=== PATIENT | female | born 1940 | race Caucasian/White ===

== ENCOUNTER 2017-01-20 14:44 | Inpatient (IN) | payer OTHER ==
[~2017-01-20] VITALS: Ht 160 cm; Wt 57.2 kg
--- NOTE | ~2017-01-20 | EKG ---
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1940 Requested By: Melina Colorado Order Number: [id number] MD: Luis Miguel Goldberg Measurements Intervals [place] Rate: 84 P: 60 DC: 134 QRS: 11 QRSD: 98 T: 224 QT: 398 QTc: 471 Interpretive Statements Sinus rhythm LVH with secondary repolarization abnormality Compared to ECG 01/21/2017 05:59:12 ST and T wave abnormality is less pronounced Prolonged QT interval no longer present Electronically Signed On 01-25-2017 8:19:42 CDT by Luis Miguel Goldberg [email or web address] <ELECTRONICALLY SIGNED> By: Luis Miguel Goldberg MD, [facility] 01/25/17 0819 1225 1225 Luis Miguel Goldberg MD, [facility] /EPI
--- NOTE | ~2017-01-20 | S ---
[facility] [place] [address] SURGICAL PATH RPT PROCEDURE Name: JERILYN SANCHEZ KERON Room #: 204-P DIS IN M.R.#: [id number] Admission: 01/20/17 Date of : 42 Discharge: 01/25/17 Report #: [id number] Path Case #: [id number] PATHOLOGY REPORT COLLECTION DATE: 01/24/2017 RECEIVED DATE: 01/25/2017 SUBMITTING PHYS: Dr. Melina Colorado OTHER PHYS: Dr. Mukul Méndez SPECIMEN(S) RECEIVED: A.Bx of duodenum B.Bx of gastric * * * * * * * * * * * * FINAL DIAGNOSIS: A. Small bowel mucosa, "duodenum", endoscopic biopsy: - No diagnostic abnormalities. B. Gastric mucosa, "gastric", endoscopic biopsy: - Mild reactive gastropathy. - No evidence of intestinal metaplasia or atrophy. - No Helicobacter pylori identified. COMMENT: Helicobacter pylori immunohistochemical stain performed on block B1- negative. (IUV; 01/26/17) PATHOLOGIST: Matilde Coronado M.D. REPORT ELECTRONICALLY SIGNED BY: Matilde Coronado M.D. DATE/TIME: 01/26/2017 15:49 * * * * * * * * * * * * GROSS PATHOLOGY: A. Received in formalin labeled "Jerliyn Sanchez, biopsy of duodenum," is a segment of friend soft tissue measuring 0.5 cm in maximum dimension. The specimen is submitted entirely in cassette A1. B. Received in formalin labeled "Jerilyn Sanchez, biopsy of gastric," are 2 segments of friend soft tissue measuring 0.6 x 0.5 x 0.3 cm in aggregate dimensions and ranging from 0.2 to 0.5 cm in maximum dimension. The specimen is submitted entirely in cassette B1. (KAH; 01/25/2017) CLINICAL HISTORY: Gastritis, rule out celiac [facility] [address] [place] [address] SURGICAL PATH RPT PROCEDURE Name: JERILYN SANCHEZ KERON Room #: 204-P [facility] IN M.R.#: [id number] Admission: 01/20/17 Date of : 42 Discharge: 01/25/17 Report #: [id number] Path Case #: [id number] INITIAL CPT CODE(S): A; 56222 B; 57644, 76438 Professional services performed by [facility] at [address] , [place] [address] Technical services performed by [facility] at [address] [place] [address], [address], [place] [address]. [facility] [address] [address] PHONE: [phone] DIRECTOR: Josh Bryan M.D. * * * END OF REPORT * * *
--- NOTE | ~2017-01-20 | EKG ---
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1940 Requested By: Shyann Bee Order Number: [id number] MD: Luis Miguel Goldberg Measurements Intervals [place] Rate: 99 P: 67 CO: 130 QRS: 17 QRSD: 96 T: 237 QT: 422 QTc: 542 Interpretive Statements Sinus tachycardia ST and T wave abnormality, consider ischemia Prolonged QT interval Compared to ECG 04/26/2016 14:07:29 ST and T wave abnormality is now present QT interval has lengthened Electronically Signed On 01-22-2017 8:40:00 CDT by Luis Miguel Goldberg [email or web address] <ELECTRONICALLY SIGNED> By: Luis Miguel Goldberg MD, [facility] 01/22/17 0840 0559 0559 Luis Miguel Goldberg MD, [facility] /EPI
[~2017-01-20 14:44] MED LIST: ASPIR 8181 MG PO; DIOVAN40 MG PO; FERREX 150 PLU1 EAC1 PO; HYDROCHLOROTHIA25 M1 PO; KLOR-CON 10 ER10 MEQ PO; LIBRAX CAPSULE1 EACH PO; MAGNESIUM OXID400 MG PO; NORCO 5-325 TA1 EACH PO; NORVASC10 MG PO; PREMARIN0.625 MG PO; PREMPRO 0.625-1 EAC1 PO; PROAIR HFA8.5 GM INH; PROZAC40 MG PO; ULTRAM 50MG TAB50 MG PO; VITAMIN D32000 UNI1 PO; VITAMIN E1000 UNI3 PO; ZIAC; ZIAC 5-6.25 MG1 EACH PO
[2017-01-20 18:35] VITALS: BP 149/85
[2017-01-20] MEDS ORDERED: XANAX 0.25 MG0.25 MG PO (18:59)
[2017-01-20 23:39] VITALS: BP 146/78
[2017-01-21 03:43] VITALS: BP 133/74
[2017-01-21 03:54] LABS: HEMATOCRIT 30.8 % (37.0-47.0); HEMOGLOBIN 9.9 gm/dL (12.0-15.0); MCH 25.4 pg (26.0-34.0); MCHC 32.2 g/dL (28.0-37.0); MCV 78.8 fL (80.0-100.0); RBC 3.91 mil/uL (4.20-5.00); RDW 17.8 % (10.5-14.5); WBC 6.4 thou/uL (4.0-11.0)
[2017-01-21 04:09] LABS: ANION GAP 10 mmol/L (7-16); BUN 16 mg/dL (7-18); CHLORIDE 104 mmol/L (98-107); CHOLESTEROL 166 mg/dL (<200); CO2 23 mmol/L (21-32); CREATININE 0.8 mg/dL (0.6-1.0); GLUCOSE 87 mg/dL (74-106); HDL CHOLESTEROL 93 mg/dL (>40); LDL CHOLESTEROL 64 mg/dL (<100); POTASSIUM 3.4 mmol/L (3.5-5.1); SODIUM 137 mmol/L (136-145); TC:HDL 1.8 Ratio (Not establshd); TRIGLYCERIDE 48 mg/dL (<150); VLDL 10 mg/dL (<40)
[2017-01-21 07:45] VITALS: BP 118/60
[2017-01-21 11:35] VITALS: BP 102/52
[2017-01-21 16:10] VITALS: BP 94/47
[2017-01-21 20:22] VITALS: BP 94/50
[2017-01-22 02:45] LABS: CALCIUM 8.1 mg/dL (8.5-10.1); CREATININE 0.9 mg/dL (0.6-1.0)
[2017-01-22 03:06] LABS: POTASSIUM 5.4 mmol/L (3.5-5.1)
[2017-01-22 04:30] VITALS: BP 110/57
[2017-01-22 07:30] VITALS: BP 144/72
[2017-01-22 11:45] VITALS: BP 118/60
[2017-01-22 15:20] VITALS: BP 119/62
[2017-01-22 19:27] VITALS: BP 106/48
[2017-01-23 02:43] VITALS: BP 136/72
[2017-01-23 03:00] LABS: ABSOLUTE NEUTROPHILS 4.2 thou/uL (1.4-8.2); BASOPHILS 0.3 % (0.0-2.0); EOSINOPHILS 2.4 % (0.0-3.0); HEMOGLOBIN 9.7 gm/dL (12.0-15.0); LYMPHOCYTES 26.3 % (24.0-44.0); MCH 25.3 pg (26.0-34.0); MCHC 31.4 g/dL (28.0-37.0); MCV 80.6 fL (80.0-100.0); MONOCYTES 8.7 % (1.0-8.0); PLATELET COUNT 106 thou/uL (150-400); POLYS 62.3 % (36.0-66.0); RBC 3.84 mil/uL (4.20-5.00); RDW 18.3 % (10.5-14.5); WBC 6.8 thou/uL (4.0-11.0)
[2017-01-23 03:02] LABS: MANUAL DIFF NO
[2017-01-23 03:07] LABS: CALCIUM 8.2 mg/dL (8.5-10.1); CREATININE 0.9 mg/dL (0.6-1.0); MAGNESIUM 1.6 mg/dL (1.8-2.4); POTASSIUM 4.3 mmol/L (3.5-5.1)
[2017-01-23 07:30] VITALS: BP 145/75
[2017-01-23 11:30] VITALS: BP 113/59
[2017-01-23 15:30] VITALS: BP 109/55
[2017-01-23 19:36] VITALS: BP 120/64
[2017-01-24 03:37] LABS: CALCIUM 8.4 mg/dL (8.5-10.1); CREATININE 0.8 mg/dL (0.6-1.0)
[2017-01-24 04:00] VITALS: BP 140/79
[2017-01-24 04:00] LABS: HEMATOCRIT 30.9 % (37.0-47.0); HEMOGLOBIN 9.9 gm/dL (12.0-15.0); MCH 25.6 pg (26.0-34.0); RBC 3.86 mil/uL (4.20-5.00); RDW 18.2 % (10.5-14.5); WBC 5.6 thou/uL (4.0-11.0)
[2017-01-24 07:55] VITALS: BP 144/80
[2017-01-24] MEDS ORDERED: HYDROCODON-ACE1 EAC7 PO (09:32)
[2017-01-24] MEDS ORDERED: PANTOPRAZOLE SO40 M1 PO (09:32)
[2017-01-24] MEDS ORDERED: BENTYL 10 MG CA10 M1 PO (09:32)
[2017-01-24 19:35] VITALS: BP 131/71
[2017-01-25 04:23] VITALS: BP 129/63
[2017-01-25 08:00] VITALS: BP 142/71
[2017-01-25 11:10] VITALS: BP 142/71
== END 2017-01-25 12:30 | disposition home or self-care (01) | DRG 392 ==
LOC: 3N 14:44 → 2N 16:30
PROVIDERS: Internal Medicine; Internal Medicine Endocrinology, Diabetes & Metabolism; Nurse Practitioner Adult Health; Nurse Practitioner Family
PROC: 0DB98ZX Excision of Duodenum, Via Natural or Artificial Opening Endoscopic, Diagnostic (ICD-10-PCS; principal; 2017-01-24)
PROC: 0DB68ZX Excision of Stomach, Via Natural or Artificial Opening Endoscopic, Diagnostic (ICD-10-PCS; principal; 2017-01-24)
DX: K29.70 Gastritis, unspecified, without bleeding (principal); I71.4 Abdominal aortic aneurysm, without rupture; R41.82 Altered mental status, unspecified; I10 Essential (primary) hypertension; F41.9 Anxiety disorder, unspecified; G43.909 Migraine, unspecified, not intractable, without status migrainosus; G89.29 Other chronic pain; M54.9 Dorsalgia, unspecified; J44.9 Chronic obstructive pulmonary disease, unspecified; I25.10 Atherosclerotic heart disease of native coronary artery without angina pectoris; E78.5 Hyperlipidemia, unspecified; I73.9 Peripheral vascular disease, unspecified; R63.4 Abnormal weight loss; Z68.22 Body mass index [BMI] 22.0-22.9, adult; K58.9 Irritable bowel syndrome, unspecified; E83.42 Hypomagnesemia; D50.9 Iron deficiency anemia, unspecified; I95.1 Orthostatic hypotension; F32.9 Major depressive disorder, single episode, unspecified; Z88.6 Allergy status to analgesic agent; Z90.710 Acquired absence of both cervix and uterus; Z88.1 Allergy status to other antibiotic agents; Z90.49 Acquired absence of other specified parts of digestive tract; Z87.891 Personal history of nicotine dependence; Z89.421 Acquired absence of other right toe(s); Z87.11 Personal history of peptic ulcer disease; Z98.42 Cataract extraction status, left eye; Z98.41 Cataract extraction status, right eye; Z98.62 Peripheral vascular angioplasty status; Z79.82 Long term (current) use of aspirin; Z79.899 Other long term (current) drug therapy; Z82.49 Family history of ischemic heart disease and other diseases of the circulatory system
CPT/HCPCS: 10081; 62110; 62900; 70005

== ENCOUNTER → 2020-01-13 | Outpatient (CLI) | payer OTHER ==
[~2020-01-13] MED LIST changes: +BENTYL 10 MG CA10 M1 PO; +HYDROCODON-ACE1 EAC7 PO; +PANTOPRAZOLE SO40 M1 PO; +XANAX 0.25 MG0.25 MG PO
== END ==
LOC: SJCVCIMAG 08:11
PROVIDERS: ATTEND Nuclear Medicine Nuclear Cardiology
DX: I08.8 Other rheumatic multiple valve diseases (principal); I11.9 Hypertensive heart disease without heart failure; I71.4 Abdominal aortic aneurysm, without rupture; I70.203 Unspecified atherosclerosis of native arteries of extremities, bilateral legs; I42.9 Cardiomyopathy, unspecified; I25.10 Atherosclerotic heart disease of native coronary artery without angina pectoris; E78.00 Pure hypercholesterolemia, unspecified; J44.9 Chronic obstructive pulmonary disease, unspecified; Z79.899 Other long term (current) drug therapy; Z82.49 Family history of ischemic heart disease and other diseases of the circulatory system; Z87.891 Personal history of nicotine dependence; Z95.820 Peripheral vascular angioplasty status with implants and grafts

== ENCOUNTER → 2020-02-27 | Outpatient (CLI) | payer OTHER | LOC: SJCVC 11:01 | PROVIDERS: ATTEND Internal Medicine Cardiovascular Disease | DX: I11.9 Hypertensive heart disease without heart failure (principal); R94.31 Abnormal electrocardiogram [ECG] [EKG]; I25.10 Atherosclerotic heart disease of native coronary artery without angina pectoris; I71.4 Abdominal aortic aneurysm, without rupture; I73.9 Peripheral vascular disease, unspecified; I42.5 Other restrictive cardiomyopathy; I08.1 Rheumatic disorders of both mitral and tricuspid valves; E78.00 Pure hypercholesterolemia, unspecified; K21.9 Gastro-esophageal reflux disease without esophagitis; J44.9 Chronic obstructive pulmonary disease, unspecified; G89.4 Chronic pain syndrome; Z79.899 Other long term (current) drug therapy; Z82.49 Family history of ischemic heart disease and other diseases of the circulatory system; Z87.891 Personal history of nicotine dependence ==

== ENCOUNTER → 2020-03-04 | Outpatient (CLI) | payer OTHER | LOC: SJCVCIMAG 10:47 | PROVIDERS: ATTEND Internal Medicine Cardiovascular Disease | DX: R00.0 Tachycardia, unspecified (principal); I25.2 Old myocardial infarction; I11.0 Hypertensive heart disease with heart failure; I50.9 Heart failure, unspecified; J44.9 Chronic obstructive pulmonary disease, unspecified; I25.10 Atherosclerotic heart disease of native coronary artery without angina pectoris; I42.5 Other restrictive cardiomyopathy; E78.5 Hyperlipidemia, unspecified; Z87.891 Personal history of nicotine dependence; Z79.899 Other long term (current) drug therapy ==

== ENCOUNTER → 2020-03-10 | Outpatient (CLI) | payer OTHER | LOC: SJCVCIMAG 07:38 | PROVIDERS: ATTEND Internal Medicine Cardiovascular Disease | DX: I65.23 Occlusion and stenosis of bilateral carotid arteries (principal) ==

== ENCOUNTER → 2020-03-10 | Outpatient (CLI) | payer OTHER ==
[2020-03-10 09:57] LABS: CREATININE 0.9 mg/dL (0.6-1.0)
== END ==
LOC: CAT 08:36
PROVIDERS: Family Medicine; ATTEND Nuclear Medicine Nuclear Cardiology
DX: I71.4 Abdominal aortic aneurysm, without rupture (principal); I25.10 Atherosclerotic heart disease of native coronary artery without angina pectoris

== ENCOUNTER → 2020-09-24 | Outpatient (CLI) | payer OTHER | LOC: SJCVC 10:51 | PROVIDERS: ATTEND Internal Medicine Cardiovascular Disease | DX: R94.31 Abnormal electrocardiogram [ECG] [EKG] (principal); I25.10 Atherosclerotic heart disease of native coronary artery without angina pectoris; I10 Essential (primary) hypertension; E78.00 Pure hypercholesterolemia, unspecified; I73.9 Peripheral vascular disease, unspecified; I36.1 Nonrheumatic tricuspid (valve) insufficiency; I34.0 Nonrheumatic mitral (valve) insufficiency; I71.4 Abdominal aortic aneurysm, without rupture; I77.9 Disorder of arteries and arterioles, unspecified; I42.9 Cardiomyopathy, unspecified; J44.9 Chronic obstructive pulmonary disease, unspecified; K21.9 Gastro-esophageal reflux disease without esophagitis; Z88.5 Allergy status to narcotic agent; Z79.899 Other long term (current) drug therapy; Z87.891 Personal history of nicotine dependence ==

== ENCOUNTER 2021-04-15 10:44 | Inpatient (IN) | payer OTHER ==
[~2021-04-15] VITALS: Ht 160 cm; Wt 58.1 kg
[~2021-04-15 10:44] MED LIST changes: -BISOPROLOL FUMAR5 MG PO; -CYANOCOBAL1000 MCG/1 IM; -FISH OIL 1,0001 EAC9 PO; -FOLIC ACID1 MG PO; -PROTONIX 20 MG20 M1 PO; -VALSARTAN80 MG PO; -VAZALORE81 MG PO
[2021-04-15 10:45] VITALS: BP 163/74
[2021-04-15 11:00] LABS: ABSOLUTE NEUTROPHILS 3.5 thou/uL (1.4-8.2); BASOPHILS 0.4 % (0.0-2.0)
[2021-04-15 11:02] LABS: EOSINOPHILS 0.7 % (0.0-3.0); LYMPHOCYTES 25.2 % (24.0-44.0); MCHC 31.2 g/dL (28.0-37.0); MCV 83.5 fL (80.0-100.0); PLATELET COUNT 176 thou/uL (150-400); POLYS 64.7 % (36.0-66.0); RBC 2.35 mil/uL (4.20-5.00); WBC 5.3 thou/uL (4.0-11.0)
[2021-04-15 11:26] LABS: HEMOGLOBIN 6.1 gm/dL (12.0-15.0)
[2021-04-15 11:27] LABS: HEMATOCRIT 19.6 % (37.0-47.0)
[2021-04-15 11:29] LABS: ANION GAP 7 mmol/L (7-16); BUN 28 mg/dL (7-18); CALCIUM 8.8 mg/dL (8.5-10.1); CHLORIDE 104 mmol/L (98-107); CO2 27 mmol/L (21-32); CREATININE 1.1 mg/dL (0.6-1.0); GLUCOSE 93 mg/dL (74-106); POTASSIUM 4.1 mmol/L (3.5-5.1); SODIUM 138 mmol/L (136-145)
[2021-04-15 11:40] LABS: ALBUMIN 2.8 g/dL (3.4-5.0); DIRECT BILIRUBIN < 0.1 mg/dL (<0.1-0.2); LIPASE 145 U/L (73-393); SGOT 19 U/L (15-37); SGPT 17 U/L (14-59); TOTAL BILIRUBIN 0.3 mg/dL (0.2-1.0); TOTAL PROTEIN 6.3 g/dL (6.4-8.2)
[2021-04-15 13:55] VITALS: BP 136/67
--- NOTE | 2021-04-15 14:53 | 2DMMODE ---
[facility] [place] [address] 2 D/M-MODE ECHOCARDIOGRAM Name: AVNI QUIROZ Room #: 170-6 ADM IN M.R.#: [id number] Admission: 04/15/21 Attend Phys: David Goode MD Discharge: Date of : 42 Report #: [id number] THIS REPORT FOR: cc: Akbar Berry MD, Rene P. MD Santiago, Patrick MD [facility] ~ APPROVED REPORT Study performed: 04/15/2021 13:18:54 EXAM: Comprehensive 2D, Doppler, and color-flow Echocardiogram Patient Location: ER Status: routine BSA: 1.59 HR: 85 bpm BP: 114/69 mmHg Rhythm: NSR Other Information Study Quality: Adequate Indications Chest Pain Hx: CAD, cardiomyopathy, CHF, COPD, PVD. 2D Dimensions IVSd: 10.85 (7-11mm) LVOT Diam: 18.91 (18-24mm) LVDd: 42.94 mm PWd: 11.21 (7-11mm) LVDs: 33.05 (25-40mm) Left Atrium: 29.81 (27-40mm) Aortic Root: 36.82 mm Volumes Left Atrial Volume (Systole) Single Plane 4CH: 39.31 mL Single Plane 2CH: 45.69 mL LA ESV Index: 30.00 mL/m2 Aortic Valve AoV Peak Corwin.: 1.47 m/s AO Peak Gr.: 8.63 mmHg LVOT Max P.69 mmHg LVOT Max V: 1.08 m/s MARCIE Vmax: 2.07 cm2 [facility] [address] [place] [address] 2 D/M-MODE ECHOCARDIOGRAM Name: AVNI QUIROZ Room #: 170-6 [facility] IN [facility]#: [id number] Admission: 04/15/21 Attend Phys: David Goode MD Discharge: Date of : 42 Report #: [id number] Vmax: 4.19 m/s AI [place]: 3.41 m/s2 AI PHT: 356.69 ms Mitral Valve E/A Ratio: 0.6 MV Decel. Time: 124.86 ms MV E Max Corwin.: 0.63 m/s MV A Corwin.: 0.98 m/s MV PHT: 36.21 ms IVRT: 100.35 ms Pulmonary Valve PV Peak Corwin.: 1.14 m/s PV Peak Gr.: 5.19 mmHg Tricuspid Valve TR Peak Corwin.: 2.67 m/s RAP Estimate: 10.00 mmHg TR Peak Gr.: 29.00 mmHg PA Pressure: 39.00 mmHg Left Ventricle The left ventricle is normal size. There is normal left ventricular wall thickness. Left ventricular systolic function is normal. LVEF is 55%. Mild diastolic dysfunction is present (impaired relaxation pattern). Right Ventricle The right ventricle is normal size. The right ventricular systolic function is normal. Atria The left atrium size is normal. The right atrium size is normal. Aortic Valve The Aortic valve is mildly sclerotic. Moderate aortic regurgitation. There is no aortic valvular stenosis. Mitral Valve Mitral valve leaflets are mildly thickened. Mild mitral annular calcification. Mild mitral regurgitation. No evidence of mitral valve stenosis. Tricuspid Valve The tricuspid valve is normal in structure. Mild tricuspid regurgitation. Estimated PAP is 39mmHg. [facility] [address] [place] [address] 2 D/M-MODE ECHOCARDIOGRAM Name: AVNI QUIROZ KERON Room #: 170-6 ADM IN M.R.#: [id number] Admission: 04/15/21 Attend Phys: David Goode MD Discharge: Date of : 42 Report #: [id number] Pulmonic Valve The pulmonary valve is normal in structure. There is no pulmonic valvular regurgitation. Great Vessels The aortic root is normal in size. Ascending aorta is not well visualized. IVC is dilated and collapses <50% with inspiration. Pericardium There is no pericardial effusion. <Conclusion> Normal left ventricular size/wall thickness Ejection fraction 55% Grade 1 diastolic dysfunction Normal right ventricular size/function Normal atrial size Color-flow Doppler study was performed of the aortic/mitral/tricuspid/pulmonary valve Aortic valve mildly sclerotic without stenosis Moderate aortic valve insufficiency Mild posterior directed mitral valve insufficiency Mild tricuspid valve insufficiency Pulmonary systolic pressure estimated 39 mmHg No pericardial effusion Normal aortic root size. <ELECTRONICALLY SIGNED> By: Barak Becerril MD, FACC 04/15/211452 52 52 Barak Becerril MD, FACC /INF
--- NOTE | 2021-04-15 14:54 | EKG ---
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1940 Requested By: Tigre Ramirez Order Number: [id number] MD: Barak Becerril Measurements Intervals [place] Rate: 95 P: 66 MI: 161 QRS: 30 QRSD: 111 T: 75 QT: 357 QTc: 449 Interpretive Statements Sinus rhythm Probable left atrial enlargement Minimal ST depression, lateral leads Compared to ECG 04/15/2021 10:37:11 ST (T wave) deviation now present Sinus tachycardia no longer present Early repolarization no longer present Possible ischemia no longer present Electronically Signed On 04-15-2021 14:54:43 CDT by Barak Becerril [email or web address] <ELECTRONICALLY SIGNED> By: Barak Becerril MD, FAC 04/15/21 1454 1104 1104 Barak Becerril MD, [facility] /EPI
--- NOTE | 2021-04-15 14:54 | EKG ---
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1940 Requested By: Tigre Ramirez Order Number: [id number] MD: Barak Becerril Measurements Intervals [place] Rate: 103 P: 81 RI: 152 QRS: 26 QRSD: 94 T: 68 QT: 333 QTc: 436 Interpretive Statements Sinus tachycardia Multiple premature complexes, vent & supraven Consider left ventricular hypertrophy Repol abnrm suggests ischemia, lateral leads Compared to ECG 01/24/2017 12:25:44 Possible ischemia now present Sinus rhythm no longer present Electronically Signed On 04-15-2021 14:54:41 CDT by Barak Becerril [email or web address] <ELECTRONICALLY SIGNED> By: Barak Becerril MD, FACC 04/15/21 1454 1037 1037 Barak Becerril MD, FAC /EPI
[2021-04-15 16:29] LABS: FOLIC ACID 15.3 ng/mL (8.6-58.9)
[2021-04-15 18:05] VITALS: BP 149/71
[2021-04-15 19:40] VITALS: BP 143/72
--- NOTE | 2021-04-15 20:00 | NUR ---
PT AN ADMIT FROM EMERGECNCY ROOM FOR ANEMAI. AND 1 PRBC GIVEN IN THE ER FOR LOW HEOGLOBIN. PLACED ON TELE MONITOR SINUS RHYTHM. LUNGS ARE CLEAR ON ROOM AIR. ABDOMEN IS SOFT BOWEL SOUNDS ACTIVE X4. ANOTHER IV STARTED AND PLACED ON PT FOR BLOOD PRODUCTS TO BE GIVEN PT NEEDS ANOTHER UNIT OF BLOOD AFTER ARIVAL TO UNIT ON CCU. CALL LIGHT WITHIN REACH AND PLAN OF CARE DISCUSSED WITH PT
[2021-04-15 22:15] VITALS: BP 126/56; BP 153/80; BP 172/74
[2021-04-16 02:32] VITALS: BP 126/58
[2021-04-16 04:34] VITALS: BP 144/52
[2021-04-16 05:46] LABS: CALCIUM 8.7 mg/dL (8.5-10.1); POTASSIUM 3.8 mmol/L (3.5-5.1)
[2021-04-16 05:47] LABS: MAGNESIUM 1.9 mg/dL (1.8-2.4)
[2021-04-16 05:51] LABS: ABSOLUTE NEUTROPHILS 2.8 thou/uL (1.4-8.2); BASOPHILS 0.6 % (0.0-2.0); EOSINOPHILS 1.6 % (0.0-3.0); HEMATOCRIT 27.9 % (37.0-47.0); LYMPHOCYTES 25.1 % (24.0-44.0); MCH 27.3 pg (26.0-34.0); MCHC 31.9 g/dL (28.0-37.0); MCV 85.6 fL (80.0-100.0); MONOCYTES 10.2 % (1.0-8.0); PLATELET COUNT 149 thou/uL (150-400); POLYS 62.5 % (36.0-66.0); RBC 3.26 mil/uL (4.20-5.00); RDW 16.8 % (10.5-14.5); WBC 4.4 thou/uL (4.0-11.0)
[2021-04-16 05:53] LABS: HEMOGLOBIN 8.9 gm/dL (12.0-15.0)
[2021-04-16 07:30] VITALS: BP 144/68
[2021-04-16 10:44] VITALS: BP 128/62
[2021-04-16 13:53] LABS: HEMATOCRIT 26.3 % (37.0-47.0); HEMOGLOBIN 8.3 gm/dL (12.0-15.0); MCH 27.1 pg (26.0-34.0); MCHC 31.6 g/dL (28.0-37.0); MCV 85.7 fL (80.0-100.0); RBC 3.07 mil/uL (4.20-5.00); RDW 16.1 % (10.5-14.5)
[2021-04-16 15:49] VITALS: BP 143/64
[2021-04-16 20:38] VITALS: BP 138/66
[2021-04-17 04:16] LABS: ABSOLUTE NEUTROPHILS 2.3 thou/uL (1.4-8.2); BASOPHILS 0.5 % (0.0-2.0); EOSINOPHILS 1.5 % (0.0-3.0); HEMATOCRIT 26.9 % (37.0-47.0); HEMOGLOBIN 8.6 gm/dL (12.0-15.0); LYMPHOCYTES 24.5 % (24.0-44.0); MCH 27.1 pg (26.0-34.0); MCHC 32.1 g/dL (28.0-37.0); MCV 84.3 fL (80.0-100.0); MONOCYTES 10.2 % (1.0-8.0); PLATELET COUNT 148 thou/uL (150-400); POLYS 63.3 % (36.0-66.0); RBC 3.18 mil/uL (4.20-5.00); RDW 16.3 % (10.5-14.5); WBC 3.6 thou/uL (4.0-11.0)
[2021-04-17 04:33] VITALS: BP 149/86
[2021-04-17 04:38] LABS: ALBUMIN 2.9 g/dL (3.4-5.0); CALCIUM 8.5 mg/dL (8.5-10.1); MAGNESIUM 1.7 mg/dL (1.8-2.4); PHOSPHORUS 3.7 mg/dL (2.5-4.9); POTASSIUM 3.5 mmol/L (3.5-5.1); TOTAL BILIRUBIN 0.6 mg/dL (0.2-1.0); TOTAL PROTEIN 5.6 g/dL (6.4-8.2)
--- NOTE | 2021-04-17 06:00 | NUR ---
A VERY DELIGHTFUL LITTLE LADY. STATED IT FELT SO GOOD TO SLEEP TONIGHT. TODAY PT TO HAVE PREP FOR COLONOSCOPY IN AM. PROGRESSING TOWARTD GOALS
[2021-04-17 07:07] VITALS: BP 143/65
[2021-04-17 12:10] VITALS: BP 147/75
[2021-04-17 16:12] VITALS: BP 145/71
[2021-04-17 19:56] VITALS: BP 146/72
--- NOTE | 2021-04-18 03:24 | NUR ---
NPO SINCE MIDNIGHT FOR A POSSIBLE COLONOSCOPY TODAY.BM'S THIS SHIFT.PT A LITTLE ANXIOUS;XANAX GIVEN.PT SLEEPING.MONITOR SHOWS SR.POC CONTINUED.
[2021-04-18 04:25] VITALS: BP 145/68
[2021-04-18 07:03] LABS: ABSOLUTE NEUTROPHILS 2.6 thou/uL (1.4-8.2); BASOPHILS 0.4 % (0.0-2.0); EOSINOPHILS 1.5 % (0.0-3.0); HEMATOCRIT 29.6 % (37.0-47.0); HEMOGLOBIN 9.3 gm/dL (12.0-15.0); LYMPHOCYTES 16.4 % (24.0-44.0); MCH 26.6 pg (26.0-34.0); MCHC 31.5 g/dL (28.0-37.0); MCV 84.2 fL (80.0-100.0); MONOCYTES 9.5 % (1.0-8.0); PLATELET COUNT 140 thou/uL (150-400); POLYS 72.2 % (36.0-66.0); RBC 3.51 mil/uL (4.20-5.00); RDW 16.3 % (10.5-14.5); WBC 3.6 thou/uL (4.0-11.0)
[2021-04-18 07:23] LABS: CALCIUM 8.9 mg/dL (8.5-10.1); MAGNESIUM 1.6 mg/dL (1.8-2.4); PHOSPHORUS 3.5 mg/dL (2.5-4.9); POTASSIUM 3.5 mmol/L (3.5-5.1)
--- NOTE | 2021-04-18 07:29 | EKG ---
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1940 Requested By: Racheal Bush Order Number: [id number] MD: Barak Becerril Measurements Intervals [place] Rate: 77 P: 62 CO: 147 QRS: 10 QRSD: 107 T: 53 QT: 385 QTc: 436 Interpretive Statements Sinus rhythm Ventricular premature complex Probable left atrial enlargement Low voltage, precordial leads Baseline wander in lead(s) V6 Compared to ECG 04/15/2021 11:04:36 Ventricular premature complex(es) now present Low QRS voltage now present ST (T wave) deviation no longer present Electronically Signed On 04-18-2021 7:28:47 CDT by Barak Becerril [email or web address] <ELECTRONICALLY SIGNED> By: Barak Becerril MD, FAC 04/18/21727 7 7 Barak Becerril MD, [facility] /EPI
[2021-04-18 07:30] VITALS: BP 161/74
[2021-04-18 11:10] VITALS: BP 151/67
[2021-04-18] MEDS ORDERED: BISOPROLOL FUMAR5 MG PO (12:51)
[2021-04-18] MEDS ORDERED: FOLIC ACID1 MG PO (12:51)
[2021-04-18] MEDS ORDERED: PROTONIX 20 MG20 M1 PO (12:51)
[2021-04-18] MEDS ORDERED: CYANOCOBAL1000 MCG/1 IM (12:51)
[2021-04-18 15:11] VITALS: BP 123/59
--- NOTE | 2021-04-18 19:00 | NUR ---
PT WAS SCHEDULED TO HAVE A COLONOSCOPY TODAY, PT RECEIVED A ENEMA, AND WAS FOUND TO STILL BE HAVING SOLID STOOLS. THE COLONOSCOPY HAS BEEN PUSHED TILL TOMORROW. PT IS CURRENTLY DOING A BOWEL PREP.
[2021-04-18 19:20] VITALS: BP 144/73
--- NOTE | 2021-04-19 03:28 | NUR ---
PT CARE ASSUMED WITH PT FINISHING UP BOWEL PREP AT 1900.PT IS A/O X4 .PT IS UP AD LAURA AND STEADY GAIT AND EDUCATED TO CALL FOR HELP .PT IS ON ROOM AIR.PT NPO FROM MIDNIGHT AND PT AWARE OF POC.PT DENIED PAIN,NAUSEA AND VOMITIONG.WILL CONTINUE TO MONITOR PER POC
[2021-04-19 04:04] VITALS: BP 163/75
[2021-04-19 07:00] VITALS: BP 129/90
--- NOTE | 2021-04-19 11:29 | NUR ---
INITIAL ASSESSMENT: SW reviewed chart and spoke with nursing and attending physician. Pt was admitted from home due to chest pain/abdominal pain. Pt to have a colonoscopy today, and then may discharge home following procedure. SW met with pt at bedside. Introduced role of SW. Pt is alert/orientated x 4. Pt reports she lives at home. Prior to admission, pt was independent with ADLs. No use of DME for ambulation. No hx of services or post-acute placement. Pt's PCP is Dr. Akbar Berry. Pt's heel attacher wood is Dr. Bonilla. Pt is aware and in agreement with discharge plan. Pt's dtr will provide transportation home. Pt is up ad moshe in her room. No discharge needs identified at this time. SW is available to assist should needs arise.
[2021-04-19 13:46] VITALS: BP 129/90
--- NOTE | 2021-04-19 14:14 | NUR ---
PT HAD COLONOSCOPY COMPLETED TODAY, RECOVERED IN PACU. PT BACK TO CCU AND IS APPROPRIATE AND SAFE. PT HAS BEEN CLEARED BY GI/CARDIOLOGY/HOSPITALIST TO DC HOME. PT AFEBRILE, ADEQUATE UOP, NO BM, POOR APPETITE. PT TO DO DC HOME WITH DAUGHTER. PT HAS BEEN THOURUGHLY UPDATED AND EDUCATED ON PT CONDITION AND POC. PT PROGRESSING TOWARDS POC.
--- NOTE | 2021-04-20 16:10 | P ---
[facility] [place] [address] PROCEDURE REPORT Name: AVNI QUIROZ Room #: 211-P [facility] IN M.R.#: [id number] Admission: 04/15/21 Attend Phys: David Goode MD Discharge: 04/19/21 Date of : 42 Report #: [id number] THIS REPORT FOR: cc: Akbar Berry MD, Rene P. MD Mc[place]hinney, Christian C. MD ~ cc: Akbar Berry MD DATE OF SERVICE: 04/19/2021 PROCEDURE PERFORMED: Colonoscopy with polypectomies. HISTORY OF PRESENT ILLNESS: The patient is an 81-year-old female who was admitted with increasing shortness of breath, dizziness, melanotic type stools. CT scan of the abdomen and pelvis showed no evidence of signs of bleeding. Hemoglobin on admission was noted to be 6.1. She underwent 2 units of packed cells. She has been having acid reflux symptoms. She underwent an upper endoscopy, by Dr. Plunkett, which was normal. She was Hemoccult positive. Her hemoglobin now after transfusion has been stable at 9.3. Plan is for colonoscopy. DESCRIPTION OF PROCEDURE: The risks and benefits of the procedure were explained to the patient, those risks including but not limited to bleeding, perforation and the risk of sedation. She understood these risks and gave informed consent. Sedation was given using propofol per Anesthesia. Next, a digital rectal exam was initially performed, which was normal. Next, using a pediatric Olympus colonoscope, the scope was placed in the patient's anus and advanced under direct vision to the cecum. The overall prep was excellent. Two polyps were noted in the cecum, the largest 7 mm, smaller 5 mm, both removed by snare cautery, otherwise normal. The ileocecal valve was normal. Scattered diverticula were noted in the ascending, transverse, descending and remaining sigmoid colon, most of which were in the left colon. No evidence of inflammation or stigmata of recent bleeding. In the descending colon, a 4 mm sessile polyp was also noted and removed with cold forceps. The rectal mucosa was normal. On retroflexion, small nonbleeding internal hemorrhoids were noted. The scope was then withdrawn and the procedure terminated. The patient tolerated the procedure well. IMPRESSION: 1. Three small colonic polyps. 2. Diverticulosis. No stigmata of recent bleeding. 3. Small internal hemorrhoids. 4. Otherwise, normal colonoscopy. RECOMMENDATIONS: 1. Await biopsy results. [address] [address] PROCEDURE REPORT Name: AVNI QUIROZ Room #: 211-P [facility] IN [facility].#: [id number] Admission: 04/15/21 Attend Phys: David Goode MD Discharge: 04/19/21 Date of : 42 Report #: [id number] 2. Recommend an M2 capsule endoscopy of small bowel as an outpatient. Thank you for allowing me to participate in her care. <ELECTRONICALLY SIGNED> By: Narendra Davalos MD 04/20/21 1610 1226 2245 Narendra Davalos MD /nt
--- NOTE | 2021-04-20 17:07 | PATH ---
[facility] [place] [address] PATHOLOGY RPT PROCEDURE Name: JERILYN SANCHEZ KERON Room #: 211-P DIS IN M.R.#: [id number] Admission: 04/15/21 Date of : 42 Discharge: 04/19/21 Report #: [id number] Path Case #: [id number] [facility] Accession Number: [id number] . 01 Material submitted: . PART A: cecum - CECAL POLYP HOT SNARE X2. Modifiers: X2 PART B: colon - DESCENDING COLON POLYP COLD SNARE. Modifiers: descending . 01 Clinical history: . COLONOSCOPY GI BLEED, ANEMIA DIVERTICULOSIS, SYMPTOMATIC ANEMIA, COLON POLYPS . 02 Diagnosis: A. 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 - Negative for high-grade dysplasia. . B. Polyp, descending colon polyp, endoscopic biopsy: - Hyperplastic polyp. - Negative for dysplasia. . (IUV:batool; 04/20/2021) MBR 04/20/2021 1255 Local . 02 Electronically signed: . Matilde Coronado MD, Pathologist NPI- [id number] . 01 Gross description: . A. The specimen is submitted in formalin, labeled "Jerilyn Sanchez, cecal polyp". Received are 4 segments of pale friend tissue ranging in size from 0.3 to 0.8 cm in maximum dimensions. The specimen is submitted entirely in cassette A1. . B. The specimen is received in formalin, labeled "Jerilyn Sanchez, descending colon polyp". Received is a single segment of pale friend tissue measuring 0.4 cm in maximum dimensions. The specimen is submitted entirely in cassette B1. ([facility]; 04/19/2021) NRI/NRI 04/19/2021 2100 Local . 02 Pathologist provided ICD-10: D12.0, K63.5 . 02 CPT . 170000, [id number] [address] [address] PATHOLOGY RPT PROCEDURE Name: JERILYN SANCHEZ KERON Room #: 211-P DIS IN M.R.#: [id number] Admission: 04/15/21 Date of : 42 Discharge: 04/19/21 Report #: [id number] Path Case #: [id number] Specimen Comment: A courtesy copy of this report has been sent to [phone], [phone] Specimen Comment: [phone], Specimen Comment: Report sent to , DR GLASS / DR RICHARDS Performed at: [address], [place] [id number] MD Delta Posey MD Phone: [phone] Performed at: [address] [id number] MD Matilde Coronado MD Phone: [phone]
== END 2021-04-19 15:51 | disposition home or self-care (01) | DRG 377 ==
LOC: ER 10:44 → 2N 13:15 → EROBS 13:15 → 2N 18:34
PROVIDERS: Internal Medicine; Nurse Practitioner; Nurse Practitioner Adult Health; Student in an Organized Health Care Education/Training Program; ADMIT Hospitalist; ATTEND Hospitalist
PROC: 0DJ08ZZ Inspection of Upper Intestinal Tract, Via Natural or Artificial Opening Endoscopic (ICD-10-PCS; principal; 2021-04-15)
PROC: 30233N1 Transfusion of Nonautologous Red Blood Cells into Peripheral Vein, Percutaneous Approach (ICD-10-PCS; principal; 2021-04-15)
PROC: 0DBM8ZZ Excision of Descending Colon, Via Natural or Artificial Opening Endoscopic (ICD-10-PCS; 2021-04-19)
PROC: 0DBH8ZZ Excision of Cecum, Via Natural or Artificial Opening Endoscopic (ICD-10-PCS; 2021-04-19)
DX: K29.71 Gastritis, unspecified, with bleeding (principal); R65.11 Systemic inflammatory response syndrome (SIRS) of non-infectious origin with acute organ dysfunction; I50.30 Unspecified diastolic (congestive) heart failure; N17.9 Acute kidney failure, unspecified; D62 Acute posthemorrhagic anemia; I42.9 Cardiomyopathy, unspecified; I77.4 Celiac artery compression syndrome; E46 Unspecified protein-calorie malnutrition; I13.0 Hypertensive heart and chronic kidney disease with heart failure and stage 1 through stage 4 chronic kidney disease, or unspecified chronic kidney disease; K57.31 Diverticulosis of large intestine without perforation or abscess with bleeding; M81.0 Age-related osteoporosis without current pathological fracture; F41.9 Anxiety disorder, unspecified; F32.9 Major depressive disorder, single episode, unspecified; Z90.710 Acquired absence of both cervix and uterus; J44.9 Chronic obstructive pulmonary disease, unspecified; G89.29 Other chronic pain; M54.9 Dorsalgia, unspecified; I25.10 Atherosclerotic heart disease of native coronary artery without angina pectoris; I73.9 Peripheral vascular disease, unspecified; I71.4 Abdominal aortic aneurysm, without rupture; E86.0 Dehydration; I08.3 Combined rheumatic disorders of mitral, aortic and tricuspid valves; R13.10 Dysphagia, unspecified; E78.5 Hyperlipidemia, unspecified; K21.9 Gastro-esophageal reflux disease without esophagitis; I72.8 Aneurysm of other specified arteries; K63.5 Polyp of colon; K64.8 Other hemorrhoids; Z20.822 Contact with and (suspected) exposure to COVID-19; D69.6 Thrombocytopenia, unspecified; N18.30 Chronic kidney disease, stage 3 unspecified; E53.8 Deficiency of other specified B group vitamins; Z87.11 Personal history of peptic ulcer disease; Z95.820 Peripheral vascular angioplasty status with implants and grafts; Z89.421 Acquired absence of other right toe(s); Z88.6 Allergy status to analgesic agent; Z88.1 Allergy status to other antibiotic agents; Z88.8 Allergy status to other drugs, medicaments and biological substances; Z87.891 Personal history of nicotine dependence; Z68.22 Body mass index [BMI] 22.0-22.9, adult; Z95.5 Presence of coronary angioplasty implant and graft; Z79.82 Long term (current) use of aspirin; Z79.899 Other long term (current) drug therapy
CPT/HCPCS: 10081; 62110; 62900; 70005

== ENCOUNTER → 2021-04-15 | Outpatient (CLI) | payer OTHER ==
[~2021-04-15] MED LIST changes: +BISOPROLOL FUMAR5 MG PO; +CYANOCOBAL1000 MCG/1 IM; +FISH OIL 1,0001 EAC9 PO; +FOLIC ACID1 MG PO; +PROTONIX 20 MG20 M1 PO; +VALSARTAN80 MG PO; +VAZALORE81 MG PO
[2021-04-15 09:30] LABS: CREATININE 1.1 mg/dL (0.6-1.0)
== END ==
LOC: CAT 08:32
PROVIDERS: ATTEND Internal Medicine Cardiovascular Disease
DX: N28.1 Cyst of kidney, acquired (principal); I71.4 Abdominal aortic aneurysm, without rupture; I70.203 Unspecified atherosclerosis of native arteries of extremities, bilateral legs; I25.10 Atherosclerotic heart disease of native coronary artery without angina pectoris; M16.0 Bilateral primary osteoarthritis of hip; Z90.49 Acquired absence of other specified parts of digestive tract

== ENCOUNTER 2021-04-23 19:03 | Observation (INO) | payer OTHER ==
[~2021-04-23] VITALS: Ht 160 cm; Wt 57.2 kg
--- NOTE | ~2021-04-23 | EMS ---
[address] [address] EMS Patient Care Report Name: AVNI QUIROZ Room #: 200-I ADM IN M.R.#: [id number] Admission: 04/24/21 Attend Phys: David Goode MD Discharge: Date of : 42 Report #: [id number] THIS REPORT FOR: //name// Report Transmitted: 04/25/2021 12:45 EMS Care Summary [facility] Incident [id number] @ 04/23/2021 17:35 Incident Location [address] [place] [address] Patient AVNI QUIROZ Female, 81 Years 1940 Patient Address [address] [place] [address] Patient History Hypertension (HTN),Diverticulitis,Migraine, Patient Allergies Acetaminophen,Morphine, Patient Medications Xanax, Vitamin B12, Diovan, ASA, Potassium, Chief Complaint Weakness Disposition Transported No Lights/[place] Dispatch Reason Hemorrhage/Laceration Transported To [facility] Narrative Dispatched to the above location for an 9-y/o female with rectal bleeding. Upon arrival, patient presents supine in bed. Patient states that she had a colonoscopy performed the previous Sunday and had a few polyps removed during the procedure. Patient states that she had her first bowel movement [address] [address] EMS Patient Care Report Name: AVNI QUIROZ Room #: 200-I ADM IN [facility]#: [id number] Admission: 04/24/21 Attend Phys: David Goode MD Discharge: Date of : 42 Report #: [id number] approximately one hour ago and after the movement, blood flowed from her rectum in a diarrhea consistency. Patient also states that she had a hemoglobin of 6.3 while she was in the hospital and received 2 units of blood. Patient daughter at the scene states that patient was checked for an upper and lower GI bleed and nothing was ever found. Patient is AOX4, denies any pain and is pale, warm and dry. Delay at the scene due to patient not wanting to go back to the hospital and indecisive about what hospital to go too. Patient is advised to go back to the hospital that performed her procedure and she finally agrees. Patient loaded to the cot and ambulance and secured for transport. Patient states that she has an upset stomach and feels like she could vomit. Patient IV 24g, LAC saline lock with 4mg Zofran IVP. Patient states improvement with Zofran. VS maintained en route with 3 lead monitoring of a NSR with no ectopy. Patient had no other complaints with no additional findings. Patient report called to [facility] and no orders received and none requested. Patient care transferred to [facility] ER nursing staff without delay or incidence. EOR [id number] Initial Vitals @18:21 @18:17P: 82,R: 12,BP: 122/59,Pain: 0/10,GCS: 15,SpO2: 96,Revised Trauma: 12, @17:53P: 72,R: 12,BP: 141/66,Pain: 0/10,GCS: 15,SpO2: 98,Revised Trauma: 12, Impression Hemorrhage Procedures @17:48ALS AssessmentResponse: UnchangedSucceeded@18:323-Lead ECGResponse: UnchangedSucceeded@18:55Surgical Mask on PatientResponse: Unchanged@18:27Saline Lock 10cc (22 ga) Site: Antecubital-LeftResponse: ImprovedSucceeded@18:55ALS AssessmentResponse: ImprovedSucceeded@18:15StretcherResponse: Unchanged@18:32Ondansetron - 4 Milligrams (mg) - Intravenous (IV)Response: Improved Timeline 17:34,Psap Call 17:35,Call Received 17:35,Dispatched 17:35,En Route 17:47,On Scene 17:48,At Patient 17:48,ALS Assessment,Response: UnchangedSucceeded, 17:53,BP: 141/66 M,PULSE: 72,RR: 12 R,SPO2: 98 Ox,ETCO2: ,BG: ,PAIN: 0,GCS: 15, 18:15,Stretcher,Response: Unchanged 18:17,BP: 122/59 M,PULSE: 82,RR: 12 R,SPO2: 96 Ox,ETCO2: ,BG: ,PAIN: 0,GCS: 15, 18:21,BP: / M,PULSE: ,RR: R,SPO2: Ox,ETCO2: ,BG: ,PAIN: ,GCS: , [address] [address] EMS Patient Care Report Name: RICHIEAVNIMoreno CABRALES Room #: 200-I ADM IN [facility].#: [id number] Admission: 04/24/21 Attend Phys: David Goode MD Discharge: Date of : 42 Report #: [id number] 18:27,Depart Scene 18:27,Saline Lock 10cc 22 ga Site: Antecubital-Left,Response: ImprovedSucceeded, 18:32,Ondansetron - 4 Milligrams (mg) - Intravenous (IV),Response: Improved 18:32,3-Lead ECG,Response: UnchangedSucceeded, 18:55,Surgical Mask on Patient,Response: Unchanged 18:55,ALS Assessment,Response: ImprovedSucceeded, 18:58,At Destination 19:00,Transfer Patient 19:15,Call Closed Disclaimer v1.1 Copyright 2020 [employer] This EMS Care Summary contains data elements from the applicable legal record (which may be displayed differently). It is designed to provide pertinent information for the following purposes: continuity of care, clinical quality, and state data reporting. The complete legal record is available to ED staff and administrators of the receiving hospital in [employer]'s Patient Tracker. All data is provided "as is."
[~2021-04-23 19:03] MED LIST changes: +BISOPROLOL FUMAR5 MG PO; +CYANOCOBAL1000 MCG/1 IM; +FOLIC ACID1 MG PO; +PROTONIX 20 MG20 M1 PO
[2021-04-23 19:04] VITALS: BP 133/52
[2021-04-23] MEDS ORDERED: VAZALORE81 MG PO (20:29)
[2021-04-23 20:30] LABS: ABSOLUTE NEUTROPHILS 4.5 thou/uL (1.4-8.2); BASOPHILS 0.7 % (0.0-2.0); EOSINOPHILS 0.8 % (0.0-3.0); HEMATOCRIT 23.1 % (37.0-47.0); HEMOGLOBIN 7.4 gm/dL (12.0-15.0); LYMPHOCYTES 17.8 % (24.0-44.0); MCH 26.8 pg (26.0-34.0); MCV 83.9 fL (80.0-100.0); MONOCYTES 7.7 % (1.0-8.0); PLATELET COUNT 104 thou/uL (150-400); RBC 2.76 mil/uL (4.20-5.00); RDW 16.8 % (10.5-14.5); WBC 6.1 thou/uL (4.0-11.0)
[2021-04-23] MEDS ORDERED: VALSARTAN80 MG PO (20:32)
[2021-04-23] MEDS ORDERED: FISH OIL 1,0001 EAC9 PO (20:33)
[2021-04-23 20:36] LABS: CALCIUM 8.2 mg/dL (8.5-10.1); CREATININE 1.2 mg/dL (0.6-1.0); POTASSIUM 3.9 mmol/L (3.5-5.1)
[2021-04-23 21:55] VITALS: BP 103/57; BP 107/47
[2021-04-24] VITALS (7 sets, daily range): BP systolic 106–174; BP diastolic 46–79
[2021-04-24 05:23] LABS: HEMATOCRIT 23.4 % (37.0-47.0); HEMOGLOBIN 7.6 gm/dL (12.0-15.0); MCH 27.6 pg (26.0-34.0); MCHC 32.7 g/dL (28.0-37.0); MCV 84.4 fL (80.0-100.0); RBC 2.77 mil/uL (4.20-5.00); RDW 16.2 % (10.5-14.5); WBC 4.7 thou/uL (4.0-11.0)
[2021-04-24 05:53] LABS: POTASSIUM 3.8 mmol/L (3.5-5.1)
--- NOTE | 2021-04-24 11:32 | EKG ---
[place] [address] [facility] 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 04/24/212 52 52 Barak Becerril MD, FACC /EPI
--- NOTE | 2021-04-24 17:29 | NUR ---
PATIENT TRANSFERRED FROM ER TO ROOM 200 THIS MORNING WITHOUT COMPLICATION. VITAL SIGNS STABLE. NO BM THIS TODAY. PLAN FOR EGD IN THE MORNING.
[2021-04-25 04:45] VITALS: BP 177/79
--- NOTE | 2021-04-25 05:13 | NUR ---
PT IS ALERT AND ORIENTED X4. PLEASANT. NO BM NOTED. CLEAR URINE NOTED IN THE BEDSIDE COMMODE. NO COMPLAINTS OF PAIN NOTED. ABDOMEN IS SOFT BEEN NPO FOR PROCEDURE THIS AM. CALL LIGHT WITHIN REACH IF NEEDS ASSISTANCE PER NURSING.
[2021-04-25 08:00] VITALS: BP 159/84
[2021-04-25 11:47] VITALS: BP 150/74
[2021-04-25 13:18] VITALS: BP 150/74
[2021-04-25 15:00] VITALS: BP 140/67
--- NOTE | 2021-04-25 17:39 | NUR ---
DIET ADVANCED AT [facility]NER MEAL TO HEART HEALTHY PER GI. PATIENT TOLERATED. DISCHARGE INSTRUCTIONS GIVEN TO PATIENT, QUESTIONS AND CONSERNS ADDRESSED. IV ACCESS DISCONTINUED. GI CONTRAPTION TO BE REMOVED PRIOR TO DISHCARGE AND PLACED AT NURSE STATION FOR GI RN TO SPECIALIZED LANGUAGE INSTRUCTOR IN THE MORNING.
--- NOTE | 2021-05-24 22:33 | NUR ---
LATE ENTRY FOR 04/25/21 AT 0145. 1ST UNIT OF PRBC INFUSED. NO S/S OF ALLERGIC REACTION, TOLERATED WELL. INFUSION COMPLETED AT 0145.
--- NOTE | 2021-05-24 22:43 | NUR ---
late entry for 04/24/21 at 0715. 2nd unit of PRBC infused without difficulty, or s/s of reaction. unit completed at 0715.
== END 2021-04-25 18:58 | disposition home or self-care (01) ==
LOC: ER 19:03 → 2N 04-24 00:03 → EROBS 04-24 00:03 → 2N 04-24 00:03
PROVIDERS: Emergency Medicine; Nurse Practitioner Family; ADMIT Hospitalist; ATTEND Hospitalist
DX: D50.0 Iron deficiency anemia secondary to blood loss (chronic) (principal); K92.1 Melena; Z20.822 Contact with and (suspected) exposure to COVID-19; N17.9 Acute kidney failure, unspecified; I42.9 Cardiomyopathy, unspecified; F41.9 Anxiety disorder, unspecified; F32.9 Major depressive disorder, single episode, unspecified; I25.10 Atherosclerotic heart disease of native coronary artery without angina pectoris; J44.9 Chronic obstructive pulmonary disease, unspecified; I71.4 Abdominal aortic aneurysm, without rupture; R53.1 Weakness; R42 Dizziness and giddiness; E11.22 Type 2 diabetes mellitus with diabetic chronic kidney disease; I13.0 Hypertensive heart and chronic kidney disease with heart failure and stage 1 through stage 4 chronic kidney disease, or unspecified chronic kidney disease; I50.30 Unspecified diastolic (congestive) heart failure; N18.30 Chronic kidney disease, stage 3 unspecified; I73.9 Peripheral vascular disease, unspecified; G89.29 Other chronic pain; M54.9 Dorsalgia, unspecified; E53.8 Deficiency of other specified B group vitamins; G43.909 Migraine, unspecified, not intractable, without status migrainosus; Z90.49 Acquired absence of other specified parts of digestive tract; Z98.890 Other specified postprocedural states; Z87.891 Personal history of nicotine dependence; Z90.710 Acquired absence of both cervix and uterus
CPT/HCPCS: 10081; 62110; 62900; 70005

== ENCOUNTER → 2021-06-03 | Outpatient (CLI) | payer OTHER ==
[~2021-06-03] MED LIST changes: +FISH OIL 1,0001 EAC9 PO; +VALSARTAN80 MG PO; +VAZALORE81 MG PO
== END | disposition home or self-care (01) ==
LOC: RAD 12:21
PROVIDERS: ATTEND Family Medicine
DX: I73.9 Peripheral vascular disease, unspecified (principal)

== ENCOUNTER → 2021-07-27 | Outpatient (CLI) | payer OTHER | LOC: SJCVC 11:13 | PROVIDERS: ATTEND Internal Medicine Cardiovascular Disease | DX: R94.31 Abnormal electrocardiogram [ECG] [EKG] (principal); I11.9 Hypertensive heart disease without heart failure; I25.10 Atherosclerotic heart disease of native coronary artery without angina pectoris; E78.00 Pure hypercholesterolemia, unspecified; I77.9 Disorder of arteries and arterioles, unspecified; I71.4 Abdominal aortic aneurysm, without rupture; I34.0 Nonrheumatic mitral (valve) insufficiency; I36.1 Nonrheumatic tricuspid (valve) insufficiency; I73.9 Peripheral vascular disease, unspecified; J44.9 Chronic obstructive pulmonary disease, unspecified; K21.9 Gastro-esophageal reflux disease without esophagitis; D50.9 Iron deficiency anemia, unspecified; Z87.891 Personal history of nicotine dependence; Z79.899 Other long term (current) drug therapy; Z88.5 Allergy status to narcotic agent ==